=== PATIENT | male | born 1960 | race African-American/Black ===

== ENCOUNTER → 2019-08-28 | Outpatient (CLI) | payer OTHER ==
--- NOTE | 2019-08-28 09:24 | RAD ---
EXAM: Chest, 2 views. HISTORY: Pain. COMPARISON: None. FINDINGS: 2 views of the chest are obtained. There is no infiltrate, pleural effusion or pneumothorax. The heart is normal in size. There is a calcified granuloma within the left lower lobe. There are surgical clips within the left neck. There is a fixation kim from the upper thoracic to upper lumbar spine. There is thoracic scoliosis. IMPRESSION: No acute pulmonary finding. Electronically signed by: Jenna Leon MD (08/28/2019 9:21 AM) [place] [id number]
--- NOTE | 2019-08-28 10:31 | RAD ---
EXAM: Lumbar spine, 2 views. HISTORY: Back pain. COMPARISON: None. FINDINGS: 2 views of the lumbar spine are obtained. There is partial visualization of a fixation kim extending from the thoracic levels to the L1 level. There is minimal dextro scoliosis of the lumbar spine centered at L4-L5. Grade 1 anterolisthesis of L4 and L5, measuring 2 mm. There is minimal retrolisthesis of L2 on L3 and L5 on S1. There is mild endplate remodeling at multiple levels. There is facet arthropathy at the lower lumbar levels. The left L1 transverse process appears to be asymmetrically enlarged, likely projectional or due to a healed fracture. IMPRESSION: 1. Mild multilevel degenerative change, described above. 2. Minimal grade 1 anterolisthesis of L4 on L5 and slight retrolisthesis of L2 on L3 and L5 on S1. The superimposed on minimal lumbar scoliosis. Electronically signed by: Jenna Leon MD (08/28/2019 10:28 AM) [id number]
== END | disposition home or self-care (01) ==
LOC: PF 08:05
PROVIDERS: ATTEND Surgery
DX: M47.816 Spondylosis without myelopathy or radiculopathy, lumbar region (principal); M43.16 Spondylolisthesis, lumbar region; M41.85 Other forms of scoliosis, thoracolumbar region; M53.87 Other specified dorsopathies, lumbosacral region; M12.88 Other specific arthropathies, not elsewhere classified, other specified site; J84.10 Pulmonary fibrosis, unspecified
CPT/HCPCS: 71046; 72100; 94010; 94729